=== PATIENT | male | born 1935 | race Caucasian/White ===

== ENCOUNTER → 2016-08-25 | Outpatient (CLI) | payer MEDICARE, OTHER | END | disposition home or self-care (01) | LOC: LAB.O 10:33 | PROVIDERS: ATTEND Nurse Practitioner Family | DX: E11.9 Type 2 diabetes mellitus without complications (principal) ==

== ENCOUNTER → 2016-10-12 | Outpatient (CLI) | payer MEDICARE, OTHER ==
--- NOTE | 2016-10-14 16:13 | RAD ---
EXAM DESCRIPTION: Lumbar Spine 3 Views CLINICAL HISTORY: 81 years, Male, RADICULITIS DUE TO DISPLACEMENT OF LUMBAR DISC COMPARISON: None. FINDINGS: Mild chronic appearing anterior compression of L1 vertebral body. Anterior height here 2.3 cm versus 3.3 cm at L2. Lower lumbar vertebral bodies of normal height. Mild narrowing L4-5. IMPRESSION: Mild anterior compression injury of L1, chronic. Mild degenerative disc disease particularly L4-5 Electronically signed by: Ronaldo Fontanez MD 10/14/2016 4:11 PM CDT
--- NOTE | 2016-10-14 16:20 | MRI ---
EXAM DESCRIPTION: Lumbar Spine w/o Contrast CLINICAL HISTORY: 81 years, Male, RADICULITIS DUE TO DISPLACEMENT OF LUMBAR DISC , right leg pain COMPARISON: Plain radiographs earlier today. MRI study October 2010 FINDINGS: Mild chronic anterior compression injury of L1 is noted on today's plain radiographs. Right T1 and T2 signals in T12 compatible with hemangioma, also seen on today's plain radiographs. Conus terminates at about L1-2. L1-2 is unremarkable. At L2-3 mild bulging disc asymmetric to the left. At L3-4 diffuse bulging disc with facet degenerative change. Mild central stenosis. At L4-5 narrowing with diffuse bulging disc and facet degenerative change. Mild central stenosis. Impingement on the right lateral recess. Disc changes slightly progressed compared to 2011. L5-S1 stable and unremarkable. IMPRESSION: 1. Disc space narrowing L4-5 with diffuse bulging disc osteophyte and facet degenerative change. Mild central stenosis and right lateral recess encroachment. These changes have progressed compared to 2011. 2. Diffuse bulging disc L3-4 mild central stenosis, similar to 2011. Other findings also not significantly change compared to prior study Electronically signed by: Ronaldo Fontanez MD 10/14/2016 4:19 PM CDT
== END ==
LOC: RAD 14:12
PROVIDERS: ATTEND Nurse Practitioner Family
DX: M51.16 Intervertebral disc disorders with radiculopathy, lumbar region (principal); M48.8X6 Other specified spondylopathies, lumbar region

== ENCOUNTER → 2019-07-16 | Outpatient (CLI) | payer MEDICARE, OTHER ==
--- NOTE | 2019-07-16 09:33 | RAD ---
EXAM DESCRIPTION: Pelvis CLINICAL HISTORY: 84 years Male, PAIN IN RIGHT HIP COMPARISON: None. TECHNIQUE: AP radiograph of the pelvis was performed. FINDINGS: The pelvic ring appears grossly intact on this single AP radiograph. No acute fracture or dislocation. Bilateral sacroiliac joints appear normal. Moderate degenerative changes identified in the bilateral hip joints. The visualized lumbo-sacral spine demonstrates mild degenerative changes. IMPRESSION: Single AP radiograph of the pelvis demonstrates grossly intact pelvic ring. Moderate bilateral hip osteoarthritis. Electronically signed by: Ilsa Patel MD 07/16/2019 9:32 AM CDT
--- NOTE | 2019-07-16 09:37 | RAD ---
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 The osseous alignment is normal. There is question of mild periarticular lucency/osteolysis involving the medial aspect of the femoral and tibial components (versus artifact) which may represent hardware loosening. Small knee joint effusion. Mild infrapatellar soft tissue swelling. Electronically signed by: Rogerio Fernandes DO 07/16/2019 9:36 AM CDT
== END ==
LOC: RAD 08:44
PROVIDERS: ATTEND Orthopaedic Surgery
DX: M16.0 Bilateral primary osteoarthritis of hip (principal); M25.461 Effusion, right knee; M79.9 Soft tissue disorder, unspecified; M25.9 Joint disorder, unspecified; Z96.651 Presence of right artificial knee joint

== ENCOUNTER → 2019-08-16 | Outpatient (CLI) | payer MEDICARE ==
--- NOTE | 2019-08-16 09:34 | RAD ---
EXAM DESCRIPTION: Knee,Right Complete CLINICAL HISTORY: 84 years, Male, CLOSED FRACTURE OF PATELLA COMPARISON: July 16, 2019 TECHNIQUE: Four views right knee FINDINGS: Four views right knee demonstrate total knee replacement with metallic femoral and tibial and lucent patellar articular components in place. On today's study a specific abnormality of the interface between the terminal and tibial components is not apparent generalized osteopenia is noted. Today's study demonstrates displaced fragment of the patella involving the inferior lateral pole with an indistinct fracture line evident on the axial images with slight posterior displacement of this fragment on the lateral view. A lucent patellar articular surface appears to be attached to the upper medial component of the patella. Definite interval change with increasing lucency at the fracture site and displacement of the inferior lateral component is evident. IMPRESSION: 1. 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 2. Abnormal patella with displaced fracture of a significant component of the lateral and inferior pole of the patella with the lucent articular surface attached to the medial superior component. Fracture line on the axial view is now apparent with displacement now apparent particularly on the lateral view. Electronically signed by: Yayo Ybarra MD 08/16/2019 9:32 AM CDT
== END ==
LOC: RAD 08:45
PROVIDERS: ATTEND Orthopaedic Surgery
DX: S82.001D Unspecified fracture of right patella, subsequent encounter for closed fracture with routine healing (principal); Z96.651 Presence of right artificial knee joint

== ENCOUNTER → 2019-08-27 | Outpatient (CLI) | payer MEDICARE ==
--- NOTE | 2019-08-27 10:36 | RAD ---
EXAM DESCRIPTION: Knee,Right 1 or 2 Views CLINICAL HISTORY: FRACTURE OF PATELLA RIGHT COMPARISON: August 16, 2019 FINDINGS: 2 views of the right knee shows postsurgical changes from total knee arthroplasty with cement fixation of tibial and femoral components. No hardware failure or loosening is seen. The patellar fracture seen on previous examination is no longer identified. Postsurgical changes from revision of the articular surface of the patella seen with mild overlying soft tissue swelling. Moderate vascular calcifications are identified Question bipartite patella involving the superior lateral aspect partly included in [id number] on AP view. IMPRESSION: Right total knee arthroplasty changes are seen. The patellar fracture seen on previous examination is not appreciated on today's exam. Question bipartite patella Electronically signed by: Dane Maria MD 08/27/2019 10:35 AM CDT
== END ==
LOC: RAD 08:52
PROVIDERS: ATTEND Orthopaedic Surgery
DX: M22.91 Unspecified disorder of patella, right knee (principal); Z96.651 Presence of right artificial knee joint

== ENCOUNTER → 2019-10-11 | Outpatient (CLI) | payer MEDICARE, OTHER ==
--- NOTE | 2019-10-11 12:41 | RAD ---
Frontal and lateral views of the right knee. [place] patellar radiograph of the patella size knee Indication: FRACTURE OF PATELLA RIGHT Comparison: August 27, 2019 Impression: Postsurgical changes of right total knee arthroplasty and patellar resurfacing noted. Compared to the prior there is a new likely comminuted fracture of the central patella with transverse and sagittally oriented components. The inferior half of the patella is posteriorly displaced by up to 2.[address] could better evaluate as clinically indicated. Small knee effusion noted. Electronically signed by: Joshua Dobson MD 10/11/2019 12:39 PM CDT
--- NOTE | 2019-10-11 12:41 | RAD ---
Frontal and lateral views of the right knee. [place] patellar radiograph of the patella size knee Indication: FRACTURE OF PATELLA RIGHT Comparison: August 27, 2019 Impression: Postsurgical changes of right total knee arthroplasty and patellar resurfacing noted. Compared to the prior there is a new likely comminuted fracture of the central patella with transverse and sagittally oriented components. The inferior half of the patella is posteriorly displaced by up to 2.[address] could better evaluate as clinically indicated. Small knee effusion noted. Electronically signed by: Joshua Dobson MD 10/11/2019 12:39 PM CDT
== END ==
LOC: RAD 09:12
PROVIDERS: ATTEND Orthopaedic Surgery
DX: S82.001D Unspecified fracture of right patella, subsequent encounter for closed fracture with routine healing (principal); Z96.651 Presence of right artificial knee joint